=== PATIENT | female | born 1940 | race Caucasian/White ===

== ENCOUNTER 2017-02-16 18:19 | Observation (INO) | payer MEDICARE, BC ==
--- NOTE | ~2017-02-16 | HP ---
History And Physical [place] [id number] [facility] [place]. [address] NAME: EFREN GILL : 42 STATUS : ADM IN [facility]#: [id number] AGE: 76 ADM/REG DATE : 02/16/17 MR#: [id number] REPORT SERV DATE: 02/17/17 DICTATED BY: KRISTI LORENZANA DATE: 02/17/17 REPORT STATUS : Draft TRANSCRIBED BY: JACQUELINE DATE: 02/17/17 DATE OF ADMISSION: 02/16/2017 CHIEF COMPLAINT: Weakness and fevers, post CT performed today with nausea and vomiting. 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 She received CT with oral contrast and was noted to be nauseated with mild vomiting and very weak. who is at bedside also reports the patient has been requiring extra help as he has been having to bathe the patient. The patient has been also noted to be febrile in clinic up to 101 which is also reconfirmed when she was in room with multiple reads of 101.5. The patient did have a foul-smelling urine per reports but this is also resolved. No signs of infection at port site but still notably weak. The patient additionally is reported to have outpatient followup with Dr. Jerome for these irregularities, and the patient has also been treated for organizing pneumonia, has been on recent Bactrim for possible UTI symptoms. There are no worsening factors or improving factors. No chest pain, no shortness of breath. Symptoms have been progressive for last few days. The fever occurred today. ADDITIONAL PAST MEDICAL HISTORY/REVIEW OF SYSTEMS: A 10-point review of systems negative except for that noted in the HPI. PHYSICAL EXAMINATION: VITAL SIGNS: O2 sats 90% on room air. Blood pressure initially 176/79, temperature 101.5 x 2, pulse 86, respirations 18. GENERAL: A weak elderly, but no acute distress. EYES: No scleral icterus. EOMI. ENT: Nares patent. Dry mucous membranes. NECK: Supple. No JVD. CHEST: Equal chest expansion. Mild polyphonic breath sounds. CV: Hypertensive, regular rate. No rubs. Cap refill less than 2 seconds. ABDOMEN: Soft, nontender, nondistended. Bowel sounds positive. : Deferred. MUSCULOSKELETAL: Moves all extremities x4. SKIN: Warm, dry. LYMPH: No cervical or supraclavicular lymphadenopathy. EXTREMITIES: No pedal edema. HEME: No bleeding or bruising. NEURO: Alert and oriented. Does have weakness diffusely but symmetrical hand strength approximately 4+. Lower extremities approximately 4 but equal. Sensation is still grossly intact. PSYCH: Appropriate mood and affect. PAST MEDICAL HISTORY: Malignant neoplasm of upper quadrant left female breast and malignancy to bone, fatigue, chemo-induced pancytopenia and agranulocytosis, secondary malignant neoplasm to lung, ER negative, UTIs, drug-induced polyneuropathy, diarrhea, anemia. History And Physical [address] [address] NAME: EFREN GILL : 42 STATUS : ADM IN [facility]#: [id number] AGE: 76 ADM/REG DATE : 02/16/17 MR#: [id number] REPORT SERV DATE: 02/17/17 DICTATED BY: KRISTI LORENZANA DATE: 02/17/17 REPORT STATUS : Draft TRANSCRIBED BY: JACQUELINE DATE: 02/17/17 Additionally, atrial fibrillation, atrophic left kidney, depression, reflux, hearing loss secondary to a viral infection and hypothyroidism. SURGERIES: Gallbladder, hysterectomy, and bladder tack. ALLERGIES: KEFLEX WITH BREAKOUT AND ANGIOEDEMA. SOCIAL HISTORY: No smoking, alcohol, or illicits. Accompanied by significant other at bedside. FAMILY HISTORY: Diabetes and heart disease. MEDICATION: Bactrim, Claritin, Florastor, fluoxetine, labetalol, losartan, multivitamin, prednisolone, prednisone, Prilosec, completed Bactrim, Synthroid, vitamin B12, and D3. LABORATORY DATA: Labs from clinic; WBC 6.8, H and H 9.9 and 29.3, platelets 237, bilirubin 0.8, glucose 98, creatinine 1.2. Sodium 137, ALT 25, alkaline phosphatase 75, chloride 102, BUN and creatinine of 16 and 1.2. AST 28, potassium 3.8, CO2 of 27. CT that was done in clinic not available. ASSESSMENT AND PLAN: 1. Recent pneumonitis. 2. Nausea and vomiting. 3. Chronic diarrhea. 4. Metastatic breast cancer. 5. Decreased p.o. intake. 6. Fever. 7. Hypertension. 8. Solitary functioning kidney. PLAN: 1. For recurrent pneumonitis, has appointment to see Dr. Jerome on , has had CT performed which results are not currently available. Does have concern for additional metastatic disease versus viral or infectious component. The patient has had multiple recurrent fevers with progressive weakness. She has been on Bactrim although not currently neutropenic. The patient has also been on steroids which she has recently completed. We will check procalcitonin and continue labs cultures but we will start on IV antibiotics with vanc and aztreonam due to severity of allergy to Keflex. We will defer to response in a.m. for continuation and cultures to be obtained. 2. For nausea and vomiting, supportive possible secondary, after the contrast for the CT appears to be cause of this as her symptoms occurred post this. 3. Chronic diarrhea, supportive. 4. Metastatic breast cancer and sees Dr. Case. 5. Decreased p.o. intake with near syncope and weakness. IV fluids, antibiotics to treat possible underlying pneumonia, fever, and pneumonitis. 6. Fever as above. We will check procalcitonin labs. The patient has completed steroids, History And Physical [address] [address] NAME: EFREN GILL : 42 STATUS : ADM IN [facility]#: [id number] AGE: 76 ADM/REG DATE : 02/16/17 MR#: [id number] REPORT SERV DATE: 02/17/17 DICTATED BY: KRISTI LORENZANA DATE: 02/17/17 REPORT STATUS : Draft TRANSCRIBED BY: MODL DATE: 02/17/17 recent Bactrim. We will initiate empiric antibiotics currently, however, additional differential was possible from tumor component. 7. Hypertension p.r.n. 8. One functional kidney, monitor creatinine. The patient reported to have contrast earlier today. DISPOSITION: Pending findings from above. DDN/MODL Kristi Lorenzana MD / [id number] CC: Yoav Rothman MD
--- NOTE | ~2017-02-16 | DS ---
Discharge Summary [facility] [address] [place]. [address] NAME: EFREN GILL : 42 STATUS : DIS [facility] PAT#: [id number] AGE: 76 ADM/REG DATE : 02/16/17 MR#: [id number] REPORT SERV DATE: 02/18/17 DICTATED BY: EVELIA ROTHMAN DATE: 02/17/17 REPORT STATUS : Draft TRANSCRIBED BY: JACQUELINE DATE: 02/17/17 ADMISSION DATE: 02/16/2017 DISCHARGE DATE: 02/17/2017 CHIEF COMPLAINT ON ADMISSION: Direct admission from the office for weakness, fevers, post CT scan with nausea and vomiting. DISCHARGE DIAGNOSES: 1. Fever with unclear source. 2. Pulmonary infiltrates which are chronic. 3. Metastatic breast cancer. 4. Hypertension. 5. CKD stage 3. 6. Chronic intermittent diarrhea. 7. Nausea and vomiting after CT scan. 8. Solitary kidney. HISTORY OF PRESENT ILLNESS: Please see full H and P by Dr. Wiley for details regarding initial presentation. HOSPITAL COURSE: The patient underwent CT scan on the date of admission and prior to CT scan she felt fine. After her port was accessed and she had CT scan, she had a fever, weakness, nausea, and vomiting. She is admitted to the hospital for observation, started on broad- spectrum antibiotics. At this point, there is no clear source. Per discussion with her oncologist at this point, I think she may have a transient bacteremia due to port access. There is no evidence of port infection at this time. The patient is eager to go home. We will discharge her with empiric Levaquin and have Dr. Case follow up with her in the office. She has appointment with Dr. Jerome tomorrow for her recent pneumonitis. She has completed steroids for this and overall feels better. In regard to her loose stool after antibiotic, she said this is intermittent for her and she does have this commonly with antibiotics. She does not have significant loose stool, just did have some today which she had not had previously. Nausea and vomiting have resolved. There is no obvious evidence of port infection. Again, Dr. Case will follow her up in the office, follow up cultures. We will do empiric additional 3 doses every 48 hours. She will just have a renal function after discharge. DISCHARGE MEDICATIONS: Same as admission with two exceptions. She will be on Levaquin q.48 hours 750 mg for 3 doses and her Cozaar was decreased to 25 mg due to some hypotension on admission. This medication can be titrated back up to her previous 50 mg dose per outpatient providers. DISPOSITION: Home. FOLLOWUP: With Dr. Jerome tomorrow and Dr. Case next week. Time spent on discharge greater than 30 minutes. Discharge Summary [address] [place]. [address] NAME: EFREN GILL : 42 STATUS : DIS [facility] PAT#: [id number] AGE: 76 ADM/REG DATE : 02/16/17 MR#: [id number] REPORT SERV DATE: 02/18/17 DICTATED BY: EVELIA ROTHMAN DATE: 02/17/17 REPORT STATUS : Draft TRANSCRIBED BY: JACQUELINE DATE: 02/17/17 LADONNA/JACQUELINE Evelia Rothman MD / [id number] CC: Rosie Salvador M.D.
[2017-02-16 17:53] LABS: ASCORBIC ACID (UR NOT ORDER) NEG (NEG); BILIRUBIN, URINE NEGATIVE (NEG); KETONE, URINE NEGATIVE (NEG)
[~2017-02-16 18:19] MED LIST: COZ50 PO; FLORASTOR250 MG PO; KLOR-CON 1010 MEQ PO; MULTIPLE VIT PO; NORV10 PO; PREV15 PO; PRILOSEC OTC20 MG PO; PROBIOTIC PO; PROTONIX PO; PROZ10 PO; PROZAC PO; QUESLITE PO; SUPER B COMP OR; SYN.05 PO; SYN075 PO; SYN1 PO; SYN88 PO; T PO; TRANDAT100 PO; VITAMIN B-121000 MC1 SL; VITAMIN D1000 UNI1 PO; VITAMIN D31000 UNIT PO; [UNRECOGNIZED DRUG - MIXTURE] SL
[2017-02-16] MEDS ORDERED: TRANDAT100 PO (20:25)
[2017-02-16] MEDS ORDERED: SYN075 PO (20:25)
[2017-02-16] MEDS ORDERED: THERGRANM PO (20:25)
[2017-02-16] MEDS ORDERED: PRILO PO (20:25)
[2017-02-16] MEDS ORDERED: PROZ10 PO (20:25)
[2017-02-16] MEDS ORDERED: SUPER B COMP PO (20:26)
[2017-02-16] MEDS ORDERED: GARLIC PO (20:26)
[2017-02-16] MEDS ORDERED: CYANO1000T PO (20:26)
[2017-02-16] MEDS ORDERED: VITAMIN D31000 UNIT PO (20:26)
[2017-02-16] MEDS ORDERED: BACDS PO (20:27)
[2017-02-16] MEDS ORDERED: COZ50 PO (20:27)
[2017-02-16 21:26] LABS: BASOPHILS 0.1 %; BASOPHILS ABSOLUTE 0.01 10/3/uL (0.0-0.16); EOSINOPHILS 0.2 %; EOSINOPHILS ABSOLUTE 0.02 10/3/uL (0.0-0.53); HEMOGLOBIN 8.9 g/dL (12.0-16.0); IMMATURE GRANULOCYTES 0.3 %; IMMATURE GRANULOCYTES ABSOLUTE 0.03 10/3/uL (0.0-0.11); LYMPHOCYTES ABSOLUTE 0.37 10/3/uL (0.67-4.30); MEAN CORPUSCULAR HEMOGLOB 32.1 pg (26.0-34.0); MEAN CORPUSCULAR VOLUME 95.3 fL (80-100); MEAN PLATELET VOLUME 9.8 fL (9.2-13.0); MONOCYTES 3.2 %; NEUTROPHILS 92.2 %; NEUTROPHILS ABSOLUTE 8.54 10/3/uL (2.02-8.40); PLATELET COUNT 190 10/3/uL (150-400); RBC DISTRIBUTION WIDTH 16.3 % (12.0-16.0)
[2017-02-16 21:28] LABS: HEMATOCRIT 26.4 % (36.0-48.0); MANUAL DIFF NO %; MEAN CORPUS HGB CONC 33.7 g/dL (32.0-36.0); RED CELL COUNT 2.77 10/6/uL (4.0-5.6); WHITE BLOOD CELLS 9.3 10/3/uL (4.5-10.5)
[2017-02-16 21:43] LABS: INFLUENZA A SCREEN NEGATIVE (NEGATIVE); INFLUENZA B SCREEN NEGATIVE (NEGATIVE)
[2017-02-16 21:51] LABS: A/G RATIO 0.9 (0.7-1.9); ALBUMIN 2.6 G/DL (3.5-5.0); ALKALINE PHOSPHATASE 73 U/L (45-117); BUN (BLOOD UREA NITROGEN) 14 MG/DL (6-23); CALCIUM, SERUM 8.4 MG/DL (8.5-10.4); CHLORIDE, SERUM 108 MMOL/L (96-112); CO2 (CARBON DIOXIDE) 24 MMOL/L (24-34); CREATININE 1.29 MG/DL (0.55-1.02); GFR AFRICAN AMERICAN 47 ML/MIN (>=60); GFR NON AFRICAN AMERICAN 40 ML/MIN (>=60); MYOGLOBIN, SERUM 95 NG/ML (0-85); PHOSPHORUS, SERUM 2.5 MG/DL (2.5-4.5); POTASSIUM, SERUM 3.7 MMOL/L (3.5-5.3); SGOT(AST) 11 U/L (5-40); SGPT(ALT) 14 U/L (5-65); SODIUM, SERUM 140 MMOL/L (135-148); TOTAL BILIRUBIN 0.8 MG/DL (0-1.2); TOTAL PROTEIN 5.6 G/DL (6.0-8.5)
[2017-02-16 21:53] LABS: CPK 37 U/L (0-200); GLUCOSE, SERUM 111 MG/DL (60-99); ULTRASENSITIVE TSH 0.667 MCIU/ML (0.358-3.740)
[2017-02-16 23:17] LABS: PROCALCITONIN 0.66 ng/mL (<0.5)
[2017-02-17 10:18] LABS: BASOPHILS 0.2 %; BASOPHILS ABSOLUTE 0.01 10/3/uL (0.0-0.16); EOSINOPHILS 0.9 %; EOSINOPHILS ABSOLUTE 0.05 10/3/uL (0.0-0.53); HEMATOCRIT 25.5 % (36.0-48.0); HEMOGLOBIN 8.7 g/dL (12.0-16.0); IMMATURE GRANULOCYTES 0.2 %; IMMATURE GRANULOCYTES ABSOLUTE 0.01 10/3/uL (0.0-0.11); LYMPHOCYTES 3.9 %; LYMPHOCYTES ABSOLUTE 0.22 10/3/uL (0.67-4.30); MANUAL DIFF NO %; MEAN CORPUS HGB CONC 34.1 g/dL (32.0-36.0); MEAN CORPUSCULAR HEMOGLOB 32.5 pg (26.0-34.0); MEAN CORPUSCULAR VOLUME 95.1 fL (80-100); MEAN PLATELET VOLUME 9.5 fL (9.2-13.0); MONOCYTES 7.5 %; MONOCYTES ABSOLUTE 0.42 10/3/uL (0.21-1.20); NEUTROPHILS 87.3 %; NEUTROPHILS ABSOLUTE 4.89 10/3/uL (2.02-8.40); PLATELET COUNT 181 10/3/uL (150-400); RBC DISTRIBUTION WIDTH 16.4 % (12.0-16.0); RED CELL COUNT 2.68 10/6/uL (4.0-5.6); WHITE BLOOD CELLS 5.6 10/3/uL (4.5-10.5)
[2017-02-17 10:30] LABS: CALCIUM, SERUM 8.1 MG/DL (8.5-10.4); CHLORIDE, SERUM 110 MMOL/L (96-112); CO2 (CARBON DIOXIDE) 21 MMOL/L (24-34); CREATININE 1.45 MG/DL (0.55-1.02); GFR AFRICAN AMERICAN 41 ML/MIN (>=60); GFR NON AFRICAN AMERICAN 35 ML/MIN (>=60); GLUCOSE, SERUM 105 MG/DL (60-99); POTASSIUM, SERUM 3.7 MMOL/L (3.5-5.3); SODIUM, SERUM 143 MMOL/L (135-148)
[2017-02-17 10:31] LABS: BUN (BLOOD UREA NITROGEN) 18 MG/DL (6-23)
[2017-02-17] MEDS ORDERED: COZ25 PO (14:38)
[2017-02-17] MEDS ORDERED: LEVAQUIN750 MG PO (14:40)
[2017-08-09] MEDS ORDERED: XELODA PO ×2 (20:46→20:47)
[2017-08-09] MEDS ORDERED: PRILOSEC OTC20 MG PO (20:48)
[2017-08-09] MEDS ORDERED: COZ50 PO (20:48)
[2017-08-09] MEDS ORDERED: MAGIC MOUTHWASH PO (20:48)
[2017-08-09] MEDS ORDERED: SYN075 PO (20:49)
[2017-08-09] MEDS ORDERED: PROZ10 PO (20:49)
[2017-08-09] MEDS ORDERED: TRANDAT100 PO (20:50)
[2017-08-09] MEDS ORDERED: BIOFREEZE TOP (20:50)
[2017-08-09] MEDS ORDERED: CYANO1000T PO (20:52)
[2017-08-09] MEDS ORDERED: MAXIMUM D3 PO (20:52)
[2017-08-09] MEDS ORDERED: MULTIVIT/MIN PO (20:54)
== END 2017-02-17 15:09 | disposition home or self-care (01) ==
LOC: CDU1 18:19
PROVIDERS: Internal Medicine Hematology & Oncology; Student in an Organized Health Care Education/Training Program
DX: C79.81 Secondary malignant neoplasm of breast (principal); C80.1 Malignant (primary) neoplasm, unspecified; J84.89 Other specified interstitial pulmonary diseases; K12.31 Oral mucositis (ulcerative) due to antineoplastic therapy; Z17.1 Estrogen receptor negative status [ER-]; N39.0 Urinary tract infection, site not specified; G62.0 Drug-induced polyneuropathy; D64.81 Anemia due to antineoplastic chemotherapy; N18.3 Chronic kidney disease, stage 3 (moderate); I48.91 Unspecified atrial fibrillation; F32.9 Major depressive disorder, single episode, unspecified; K21.9 Gastro-esophageal reflux disease without esophagitis; E03.9 Hypothyroidism, unspecified; Z79.899 Other long term (current) drug therapy; D61.811 Other drug-induced pancytopenia; J18.9 Pneumonia, unspecified organism; R91.8 Other nonspecific abnormal finding of lung field; I12.9 Hypertensive chronic kidney disease with stage 1 through stage 4 chronic kidney disease, or unspecified chronic kidney disease; Z88.8 Allergy status to other drugs, medicaments and biological substances
CPT/HCPCS: 71020; 80048; 80053; 81001; 82150; 82550; 83605; 83690; 83735; 83874; 84100; 84145; 84443; 85025; 87040; 87449; 87804; 96372; 96374; 96375; 96376; 97165-GO; A9270-GY; G0378; G8987-CJ-GO; G8988-CJ-GO; G8989-CJ-GO; J3370